=== PATIENT | male | born 2000 | race Caucasian/White ===

== ENCOUNTER 2021-01-28 12:59 | Inpatient (IN) ==
[2021-01-28 14:02] LABS: Basophils # (auto) 0.02 K/uL (0-0.2); Basophils % (auto) 0.2 %; Eosinophils # (auto) 0.11 K/uL (0-0.5); Hematocrit (blood only) 40.4 % (42-52); Hemoglobin 14.1 g/dL (14.0-18.0); Immature Granulocytes # (auto) 0.04 K/uL (0.00-0.02); Immature Granulocytes % (auto) 0.4 %; Lymphocytes % (auto) 11.8 %; Mean Corpuscular Hemoglobin 29.7 pg (25-34); Mean Corpuscular Hgb Conc 34.9 g/dL (32-36); Mean Corpuscular Volume 85.2 fL (80-100); Mean Platelet Volume 9.2 fL (7.4-10.4); Monocytes # (auto) 0.68 K/uL (0.11-0.59); Monocytes % (auto) 6.2 %; Neutrophils # (auto) 8.85 K/uL (1.4-6.5); Neutrophils % (auto) 80.4 %; Platelet Count 226 K/uL (130-400); RDW Coefficient of Variation 11.5 % (11.5-14.5); RDW Standard Deviation 36.1 fL (36.4-46.3); Red Blood Count 4.74 M/uL (4.7-6.1)
--- NOTE | 2021-01-28 14:04 | History & Physical Report ---
Date of Service January 28, 2021 Assessment & Plan (1) Branchial cleft cyst: Mr. Yang is a 20-year-old male with a history of Allergic Rhinitis and Chronic Left Maxillary Sinusitis who presents today as a referral from Dr. 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 Patient was seen by Dr. Peguero earlier today -- and Dr. Peguero aspirated 10 cc of purulent fluid. This fluid was sent off for both aerobic and anaerobic cultures and Gram stain. Over the past 4-5 days, the patient has had increased swelling in his neck, occasional fevers, and his neck mass is more tender. He was prescribed Augmentin -- however the swelling continued to worsen and that is why he re turned to see Dr. Peguero today. Dr Peguero referred him for admission and IV antibiotics. Patient first met with ENT in December 2020 for this swelling of his right neck over the preceding month. He was diagnosed with a branchial cleft cyst. CT Scan 12/15/20 demonstrated a 5.6 x 4.2 x 3.1 cm right neck lesion located inferior to the right angle of the mandible and anterior to the right sternocleidomastoid m uscle, compressing the right internal jugular vein. He was also diagnosed with a chronic left maxillary sinusitis at that time. Patient met with Dr. Peguero on 12/29/20 and was advised to undergo surgical excision -- this elective procedure was scheduled for mid February. Patient offers no other complaints. He denies any shortness of breath, stridor, adventitious breath sounds, difficulty swallowing, or any pain into his ear. He has not had any gagging, nausea, or vomiting. He denies any headache or stiff neck. No changes in his speech. 1. Admit to observation status on Med-Surg. 2. Consult Dr. Peguero, who plans on surgically excising this cyst. 3. Obtain baseline labs. 4. COVID screening. 5. Begin IV Unasyn 3 g q.6 hours. 6. Regular diet today, NPO at midnight. (2) Chronic left maxillary sinusitis: -- No maxillary tenderness. -- IV Unasyn 3 grams q 6 hours. -- Continue Claritin 10 mg daily as needed. -- Continue steroid nasal spray. (3) Allergic rhinitis: -- Continue Claritin 10 mg daily as needed. -- Continue steroid nasal spray. History of Present Illness Chief Complaint: -- Infected Right Branchial Cleft Cyst. Primary Care Provider: NO PCP Mr. Yang is a 20-year-old male with a history of Allergic Rhinitis and Chronic Left Maxillary Sinusitis who presents today as a referral from Dr. 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 Patient was seen by Dr. Peguero earlier today -- and Dr. Peguero aspirated 10 cc of purulent fluid. This fluid was sent off for both aerobic and anaerobic cultures and Gram stain. Over the past 4-5 days, the patient has had increased swelling in his neck, occasional fevers, and his neck mass is more tender. He was prescribed Augmentin -- however the swelling continued to worsen and that is why he returned to see Dr. Peguero today. Dr Peguero referred him for admission and IV antibiotics. Patient first met with ENT in December 2020 for this swelling of his right neck over the preceding month. He was diagnosed with a branchial cleft cyst. CT Scan 12/15/20 demonstrated a 5.6 x 4.2 x 3.1 cm right neck lesion located inferior to the right angle of the mandible and anterior to the right sternocleidomastoid muscle, compressing the right internal jugular vein. He was also diagnosed with a chronic left maxillary sinusitis at that time. Patient met with Dr. Peguero on 12/29/20 and was advised to undergo surgical excision -- this elective procedure was scheduled for mid February. Patient offers no other complaints. He denies any shortness of breath, stridor, adventitious breath sounds, difficulty swallowing, or any pain into his ear. He has not had any gagging, nausea, or vomiting. He denies any headache or stiff neck. No changes in his speech. Allergies Allergy/AdvReac Type Severity Reaction Status Date / Time kiwi Allergy hard to Verified 01/28/21 14:42 breath trace Allergy hard to Uncoded 01/28/21 14:42 breath Home Medications Medication Instructions Recorded Confirmed Type acetaminophen [Tylenol Extra 1,000 mg PO Q6 PRN 12/15/20 01/28/21 History Strength] fluticasone propionate [Flonase 1 spray INTRANASAL DAILY 12/15/20 01/28/21 History Allergy Relief] guaifenesin [Mucinex] 600 mg PO Q12H PRN 12/15/20 01/28/21 History ibuprofen 400 - 600 mg PO Q6H PRN 12/15/20 01/28/21 History loratadine [Claritin] 10 mg PO DAILY 12/15/20 01/28/21 History amoxicillin 875 mg-potassium 1 tab PO BID #20 tab 01/22/21 01/28/21 Rx clavulanate 125 mg tablet Past Med/Surg History Medical History Allergic rhinitis Chronic left maxillary sinusitis No pertinent past medical history Seasonal allergies Surgical History History of surgery correction of torsion Family History Mother Allergies Denies family history of Hearing loss No family history of adverse response to anesthesia No family history of bleeding disorder Heart disease Cancer Hypertension Stroke Asthma Social History Smoking Status: Never smoker Second Hand Exposure: No; Do You Dip or Chew Tobacco: No; Tobacco Cessation Education Requested by Patient: No Hx Alcohol Use: Yes Alcohol type: beer and hard liquor Alcohol Intake Frequency Comment: maybe 1 and more in a social setting per new patient form. Hx Substance Use: No Preferred Language: Moldovan Communication Ability: Effective Connection Worker Required: No Beliefs That Will Affect Care: None marital status: Single Current Living Situation: Family current occupational status: student Other Information That Helps Us Care for You: No Feels Safe at Home: Yes Safety Concerns: Feels Safe At This Time Assistive Devices: None Review of Systems Review of Systems: All systems reviewed & are unremarkable except as noted in Subjective Physical Exam Physical Exam: GENERAL: Patient in no acute distress. HEENT: Head is atraumatic, normocephalic. EOM's intact. Facies symmetric. No perioral cyanosis. Pharynx is clear. NECK: No JVD. Large right neck mass, fluctuant and doughy feeling with mild tenderness to palpation. Dressing from earlier aspiration is present. No obvious cervical or submandibular adenopathy. Carotid upstrokes are + 2 bilaterally. No bruits are noted. CHEST/LUNGS: Clear to auscultation throughout all lung delgadillo. No wheezes, rales, or crackles. No stridor. CVS: S1 and S2 are regular without obvious murmurs, gallops, or rubs. PMI is nondisplaced. No lifts, heaves, or thrills. No abdominal aortic or renal bruits. ABDOMINAL EXAM: Bowel sounds are present. No masses, organomegaly, or tenderness. EXTREMITIES: No clubbing or cyanosis. No edema. Intact posterior tibial and radial pulses bilaterally. NEUROLOGIC EXAM: Patient is awake, alert, and oriented. Pleasant and cooperative. Answers questions appropriately. Speech is clear. Normal movement in all 4 extremities. Gait pattern is unremarkable. Results & Data Results & Data ([facility]) Vital Signs (Past 12 Hours) Vital Signs Temp Pulse Resp BP Pulse Ox 01/28/21 13:02 37.2 C 77 20 142/82 H 97 Diagnostic Findings ULTRASOUND-GUIDED FINE-NEEDLE ASPIRATION CYSTIC LESION RIGHT NECK 01/28/21: CLINICAL HISTORY: Cystic lesion of the right neck. COMPARISON STUDY: Ultrasound and CT of the soft tissues of the neck dated 12/15/2020. PROCEDURE: The risks, benefits, and alternatives to the procedure were discussed with the patient. Written informed consent was obtained. The patient was placed supine in ultrasound, and the 5.5 x 2.8 x 4.7 cm minimally complex cystic lesion in the anterior right upper neck was localized by ultrasound and selected for fine needle aspiration. The right neck was prepped and draped in the usual sterile fashion. The lesion was aspirated under ultrasound guidance with 2 passes utilizing 25-gauge needles. Specimens were reviewed by the pathologist in real-time and deemed adequate for diagnosis. The patient tolerated the procedure well and left the department in satisfactory condition. IMPRESSION: Completed fine-needle aspiration of a cystic lesion of the right upper neck as above. CT SCAN OF NECK with IV Contrast 12/15/20: Visualized portions of the intracranial contents are unremarkable. The left maxillary sinus is opacified. There is mild ethmoid sinus mucosal thickening. Mastoid air cells are clear. Epiglottis is normal. No mucosal lesion is identified although these may be occult by CT. Note is made of a 5.6 x 4.2 x 3.1 cm hypodense cystic lesion within the right neck which corresponds to the finding on ultrasound. This measures above water attenuation. Note is made of a mildly thickened wall. This lesion is located inferior to the right angle of the mandible and anterior to the right sternocleidomastoid muscle. This compresses the right internal jugular vein. Note is made of an adjacent right level 5 lymph node measuring 8 mm in short axis diameter. Lung apices are clear. IMPRESSION: 1. 5.6 x 4.2 x 3.1 cm right neck lesion which corresponds to the finding on ultrasound. The lesion is located inferior to the right angle of the mandible and anterior to the right sternocleidomastoid mastoid muscle and compresses the right internal jugular vein. Mildly thickened wall. Given location, this favors a right second branchial cleft cyst with possible recent infection given wall thickening. However, a necrotic lymph node cannot be completely excluded. Therefore, nonemergent ENT consultation is recommended. 2. Prominent adjacent right level 5 lymph node 3. Opacified left maxillary sinus. Mild ethmoid sinus mucosal thickening. Code Status & VTE Plan Code Status Full Code VTE Prophylaxis Plan VTE Prophylaxis will be ordered: Yes Supervising Physician Co-Signing Physician Notes I personally saw and examined the patient. I verified all gutierrez points and agree with Bulmaro Haji PA-C with the following exceptions and/or additions: 20 yo male with infected right brachial cyst. Improved since aspiration in office. O/E non-toxic appearing, HS1+2, no murmurs, Chest CTAB A/P IV Unasyn and dexamethasone per EENT, consult Dr Peguero for further management. NPO with IV fluids after midnight PG Care Time/CCT Total # of Minutes Spent Total Time Spent with Patient: Total time spent is greater than 50% in coordination of care (as documented) at patient's floor/unit and/or counseling patient:30 Coding Level of Care Code 88310 OBS Care - Level 2 Diagnoses Branchial cleft cyst Q18.0 Chronic left maxillary sinusitis J32.0 Allergic rhinitis J30.9 Time Spent (min) 40
[2021-01-28 14:32] LABS: Albumin Globulin Ratio 0.9 (0.9-2); Albumin Level 3.5 gm/dl (3.4-5.0); BUN Creatinine Ratio 12.3 (10-20); Bilirubin,Total 0.5 mg/dl (0.2-1); Calcium 8.7 mg/dl (8.5-10.1); Est GFR (African American) 123.3 ml/min; Est GFR (Non-African American) 106.4 ml/min; Potassium 3.8 mmol/L (3.5-5.1); Total Protein 7.5 gm/dl (6.4-8.2)
[2021-01-28 16:26] LABS: Appearance Urine Clear (Clear); Bacteria Urine Automated Negative (Negative); Bilirubin Urine Negative (Negative); Blood Urine Negative (Negative); Color Urine Dark Yellow; Glucose Urine UA Negative (Negative); Ketones Urine Trace (Negative); Leukocyte Esterase Urine Negative (Negative); Nitrite Urine Negative (Negative); Protein Urine Trace (Negative); RBC Urine Automated 0-4 /hpf (0-4); Specific Gravity Urine 1.038 (1.000-1.030); Urobilinogen Urine Negative (Negative); pH Urine 5.5 (4.5-7.5)
[2021-01-28] MEDS ORDERED: AMPICILLIN/SULBACTAM SOD 3,000 MG in 0.9 % SODIUM CHLORIDE 100 ML IV STA (16:42)
[2021-01-28] MEDS ORDERED: DEXAMETHASONE SOD INJ 4 MG/ML VIAL IV ONE (17:00)
[2021-01-28] MEDS ORDERED: ZOLPIDEM TARTRATE 5 MG TAB PO PRN (18:34)
[2021-01-28] MEDS ORDERED: MAGNESIUM HYDROXIDE SUSP 30 ML UDC PO PRN (18:34)
[2021-01-28] MEDS ORDERED: POLYETHYLENE (MIRALAX) 17 GM PACK PO PRN (18:34)
[2021-01-28] MEDS ORDERED: ONDANSETRON INJ 2 MG/ML 2 ML VIAL IV PRN (18:34)
[2021-01-28] MEDS ORDERED: ALUMINUM/MAGNESIUM SUSP 30 ML UDC PO PRN (18:34)
--- NOTE | 2021-01-28 20:06 | ENT Consultation ---
Date of Consultation January 28, 2021 Assessment & Plan (1) Branchial cleft cyst: The cyst has become infected. I have aspirated 10 cc of purulent material reducing the size of the cyst. Will admit for IV Unasyn and Decadron. If he worsens he will need continued IV antibiotics. If he does improve with less tenderness and less swelling he can undergo excision of branchial cleft cyst. Risks and implications were explained to the patient and his father who was present. They both appear to understand and desire to proceed with admission and possible excision. History of Present Illness Reason for Consultation: This 20-year-old presented to the emergency room in December with acute onset of right neck swelling. He was found to have a rather large right neck cystic lesion. CT scan documented cyst. Needle biopsy showed squamous cells consistent with branchial cleft cyst. The patient went home after graduation. However the right neck swelling increased and became tender and painful. He was at home therefore I prescribed Augmentin. He finally returned to see me today when he was found to have evidence of abscess. 10 cc of pus was aspirated. He will be admitted for IV Unasyn and Decadron. He may need excision of branchial cleft cyst acutely tomorrow. Attending Physician: Tommy Rea MD Allergies Allergy/AdvReac Type Severity Reaction Status Date / Time kiwi Allergy hard to Verified 01/28/21 14:42 breath trace Allergy hard to Uncoded 01/28/21 14:42 breath Home Medications Medication Instructions Recorded Confirmed Type acetaminophen [Tylenol Extra 1,000 mg PO Q6 PRN 12/15/20 01/28/21 History Strength] fluticasone propionate [Flonase 1 spray INTRANASAL DAILY 12/15/20 01/28/21 History Allergy Relief] guaifenesin [Mucinex] 600 mg PO Q12H PRN 12/15/20 01/28/21 History ibuprofen 400 - 600 mg PO Q6H PRN 12/15/20 01/28/21 History loratadine [Claritin] 10 mg PO DAILY 12/15/20 01/28/21 History amoxicillin 875 mg-potassium 1 tab PO BID #20 tab 01/22/21 01/28/21 Rx clavulanate 125 mg tablet Patient History Medical History Allergic rhinitis Chronic left maxillary sinusitis No pertinent past medical history Seasonal allergies Surgical History History of surgery correction of torsion Family History Mother Allergies Denies family history of Hearing loss No family history of adverse response to anesthesia No family history of bleeding disorder Heart disease Cancer Hypertension Stroke Asthma Social History Smoking Status: Never smoker Second Hand Exposure: No; Do You Dip or Chew Tobacco: No; Tobacco Cessation Education Requested by Patient: No Hx Alcohol Use: Yes Alcohol type: beer and hard liquor Alcohol Intake Frequency Comment: maybe 1 and more in a social setting per new patient form. Hx Substance Use: No Preferred Language: Bermudian Communication Ability: Effective Macadam Raker Required: No Beliefs That Will Affect Care: None marital status: Single Current Living Situation: Family current occupational status: student Other Information That Helps Us Care for You: No Feels Safe at Home: Yes Safety Concerns: Feels Safe At This Time Assistive Devices: None Physical Exam Constitutional: WD/WN, vitals as above Eyes: PERRL, conjunctivae normal, anicteric sclerae ENMT: external ear and nose normal, oropharynx normal Neck: Large fluctuant tender 8 cm right neck mass. 10 cc of purulent material was aspirated and sent for culture. This did provide some relief. Respiratory: normal respiratory effort, lungs clear to auscultation Cardiovascular: RRR, no murmur, no edema Results & Data ([facility]) Vital Signs (Past 12 Hours) Vital Signs Temp Pulse Pulse Resp BP BP Pulse Ox 01/28/21 18:34 37.5 C 96 H 20 155/81 H 96 01/28/21 18:11 36.7 C 88 16 146/81 H 98 01/28/21 18:01 88 23 97 01/28/21 18:00 83 21 146/81 H 97 01/28/21 17:50 91 H 26 H 97 01/28/21 17:46 97 H 16 145/80 H 98 01/28/21 17:40 87 23 97 01/28/21 17:31 89 19 97 01/28/21 17:30 89 23 145/80 H 98 01/28/21 17:00 83 20 156/83 H 97 01/28/21 16:40 95 H 15 97 01/28/21 16:31 103 H 23 98 01/28/21 16:30 103 H 21 156/89 H 98 01/28/21 16:20 94 H 22 97 01/28/21 16:10 83 22 97 01/28/21 16:01 89 18 97 01/28/21 16:00 87 12 149/74 H 97 01/28/21 15:50 94 H 21 98 01/28/21 15:40 96 H 96 H 21 141/79 H 97 01/28/21 15:31 79 17 97 01/28/21 15:30 84 19 141/79 H 97 01/28/21 15:20 91 H 19 97 01/28/21 15:00 90 17 143/80 H 97 01/28/21 14:30 93 H 22 148/80 H 98 01/28/21 14:00 88 18 145/82 H 97 01/28/21 13:02 37.2 C 77 20 142/82 H 97
[2021-01-28] MEDS: LACTATED RINGER'S 1,000 ML IV SCH (22:47)
[2021-01-28] MEDS: AMPICILLIN/SULBACTAM SOD 3,000 MG in 0.9 % SODIUM CHLORIDE 100 ML IV SCH (23:32)
[2021-01-29] MEDS: AMPICILLIN/SULBACTAM SOD 3,000 MG in 0.9 % SODIUM CHLORIDE 100 ML IV SCH ×4 (05:04→23:35)
[2021-01-29 07:36] LABS: BUN Creatinine Ratio 12.1 (10-20); Calcium 8.9 mg/dl (8.5-10.1); Creatinine Clr Calc Pharmacy 156.3 ml/min; Est GFR (African American) 144.8 ml/min; Est GFR (Non-African American) 124.9 ml/min; Potassium 4.6 mmol/L (3.5-5.1)
[2021-01-29] MEDS: LACTATED RINGER'S 1,000 ML IV SCH ×2 (08:07→14:56)
[2021-01-29] MEDS: LORATADINE 10 MG TAB PO SCH (08:08)
[2021-01-29] MEDS: FLUTICASONE PROPIONATE NA SPR 16 GM BTL SCH (08:08)
[2021-01-29 09:25] LABS: Basophils # (auto) 0.01 K/uL (0-0.2); Basophils % (auto) 0.1 %; Eosinophils # (auto) 0.02 K/uL (0-0.5); Eosinophils % (auto) 0.2 %; Hematocrit (blood only) 43.3 % (42-52); Hemoglobin 15.3 g/dL (14.0-18.0); Immature Granulocytes # (auto) 0.05 K/uL (0.00-0.02); Immature Granulocytes % (auto) 0.5 %; Lymphocytes # (auto) 1.34 K/uL (1.2-3.4); Lymphocytes % (auto) 12.3 %; Mean Corpuscular Hemoglobin 29.8 pg (25-34); Mean Corpuscular Hgb Conc 35.3 g/dL (32-36); Mean Corpuscular Volume 84.4 fL (80-100); Mean Platelet Volume 9.1 fL (7.4-10.4); Monocytes # (auto) 0.84 K/uL (0.11-0.59); Monocytes % (auto) 7.7 %; Neutrophils # (auto) 8.64 K/uL (1.4-6.5); Neutrophils % (auto) 79.2 %; Platelet Count 246 K/uL (130-400); RDW Coefficient of Variation 11.4 % (11.5-14.5); RDW Standard Deviation 35.5 fL (36.4-46.3); Red Blood Count 5.13 M/uL (4.7-6.1)
--- NOTE | 2021-01-29 14:49 | Hospitalist Progress Note ---
Date of Service January 29, 2021 Assessment & Plan (1) Branchial cleft cyst: With infection. - Continue Unasyn and dexamethasone - ENT consulted -> Plan for removal today vs. tomorrow pending OR time. (2) Chronic left maxillary sinusitis: - Abx as above (3) Allergic rhinitis: - Continue loratadine and Flonase (4) DVT prophylaxis: SCDs - Low DVT risk per admission calculator Admission and Anticipated Discharge Date Admission Date: January 28, 2021 Subjective Feels better today. Neck is less stiff/sore. Reports no fevers/chills, chest pain, shortness of breath, abdominal pain, nausea, or vomiting. Physical Exam Constitutional: WD/WN, vitals as above Eyes: EOM intact bilaterally; no conjunctival abnormality ENMT: external ear and nose normal, oropharynx normal Neck: trachea midline, no thyromegaly + anterior neck swelling (Right side); + abnormal visual inspection Respiratory: normal respiratory effort, lungs clear to auscultation no respiratory distress Cardiovascular: RRR, no murmur, no edema Gastrointestinal (Abdomen): Inspection/Auscultation: abdomen normal to inspection; abdomen not distended Musculoskeletal: no cyanosis or clubbing, extremities motor strength 5/5 Skin: no rashes, warm and dry Neurologic: moves all extremities and awake Psychiatric: Orientation: alert, oriented to person and cooperative Results & Data Results & Data ([facility]) Vital Signs (Past 12 Hours) Vital Signs Temp Pulse Resp BP Pulse Ox 01/29/21 06:58 36.5 C 62 16 137/76 97 PG Care Time/CCT Total # of Minutes Spent Total Time Spent with Patient: Total time spent is greater than 50% in coord ination of care (as documented) at patient's floor/unit and/or counseling patient: Coding Level of Care Code 73834 Subseq Hosp Care Lvl 2 Diagnoses Branchial cleft cyst Q18.0 Chronic left maxillary sinusitis J32.0 Allergic rhinitis J30.9 DVT prophylaxis Z29.9
[2021-01-29] MEDS ORDERED: dexAMETHasone 8 MG in SYRINGE 0 ML IV SCH (16:00)
--- NOTE | 2021-01-29 16:02 | Ears,Nose,Throat Progress Note ---
Date of Service January 29, 2021 Assessment & Plan (1) Branchial cleft cyst: improving, surgery postponed until tomorrow, Admission and Anticipated Discharge Date Admission Date: January 29, 2021 Subjective Feeling better.Pain level 1 Physical Exam Constitutional: WD/WN, vitals as above Eyes: PERRL, conjunctivae normal, anicteric sclerae ENMT: external ear and nose normal, oropharynx normal Neck: still has fluctuant mass, large, minimaltenderness Results & Data ([facility]) Vital Signs (Past 12 Hours) Vital Signs Temp Pulse Resp BP Pulse Ox 01/29/21 14:46 36.9 C 85 20 144/73 H 98 01/29/21 06:58 36.5 C 62 16 137/76 97
[2021-01-30] MEDS: AMPICILLIN/SULBACTAM SOD 3,000 MG in 0.9 % SODIUM CHLORIDE 100 ML IV SCH ×4 (05:27→22:51)
[2021-01-30] MEDS ORDERED: fentaNYL citrate 100 MCG/2 ML VIAL ONE (07:57)
[2021-01-30] MEDS ORDERED: MIDAZOLAM HCL 1 MG/ML 2ML VIAL ONE (07:57)
--- NOTE | 2021-01-30 08:03 | Anesthesiology Consultation ---
Date of Service January 30, 2021 Assessment & Plan (1) Encounter for pre-operative examination: History Surgery Operation Date: 01/30/21 08:20 Proposed Procedures p Right Excision Infected Branchial Cleft Cyst - Kaitlin Peguero MD Height/Weight Height: 5 ft 9 in Weight: 91.9 kg Allergies Allergy/AdvReac Type Severity Reaction Status Date / Time kiwi Allergy hard to Verified 01/28/21 14:42 breath trace Allergy hard to Uncoded 01/28/21 14:42 breath Medications Home Medications Medication Instructions Recorded Confirmed Last Taken acetaminophen [Tylenol Extra 1,000 mg PO Q6 PRN 12/15/20 01/28/21 01/27/21 Strength] fluticasone propionate [Flonase 1 spray INTRANASAL DAILY 12/15/20 01/28/21 01/27/21 Allergy Relief] guaifenesin [Mucinex] 600 mg PO Q12H PRN 12/15/20 01/28/21 01/27/21 ibuprofen 400 - 600 mg PO Q6H PRN 12/15/20 01/28/21 01/27/21 loratadine [Claritin] 10 mg PO DAILY 12/15/20 01/28/21 01/27/21 amoxicillin 875 mg-potassium 1 tab PO BID #20 tab 01/22/21 01/28/21 01/28/21 clavulanate 125 mg tablet Active Medications Generic Name Dose Route Start Last Admin Trade Name Freq PRN Reason Stop Dose Admin Fluticasone Propionate 1 sprays 01/29/21 09:00 01/29/21 08:08 Fluticasone Propionate Na Spr 16 Gm Btl NA 02/28/21 08:59 Not Given DAILY JESÚS Dexamethasone 8 mg/ Syringe 2 mls @ 1 mls/min 01/29/21 16:00 01/29/21 16:58 IV 02/28/21 15:59 1 mls/min Q24H JESÚS Administration Ampicillin Sodium/Sulbactam 108 mls @ 200 mls/hr 01/28/21 23:00 01/30/21 06:15 Sodium 3,000 mg/ Sodium IV 02/07/21 22:59 Infused Chloride Q6H JESÚS Infusion Protocol Loratadine 10 mg 01/29/21 09:00 01/29/21 08:08 Loratadine 10 Mg Tab PO 02/28/21 08:59 Not Given DAILY JESÚS Past Medical History Medical History Allergic rhinitis Chronic left maxillary sinusitis No pertinent past medical history Seasonal allergies Past Family History Family History Mother Allergies Denies family history of Hearing loss No family history of adverse response to anesthesia No family history of bleeding disorder Heart disease Cancer Hypertension Stroke Asthma Past Surgical History Surgical History History of surgery correction of torsion Social History Smoking Status: Never smoker Do You Dip or Chew Tobacco: No Hx Alcohol Use: Yes Alcohol type: beer and hard liquor alcohol intake frequency: a few times a week Hx Substance Use: No Physical Exam Vital Signs Last Vital Signs Temp 36.5 C 01/30/21 07:58 Pulse 81 01/30/21 07:58 Resp 16 01/30/21 07:58 BP 127/65 01/30/21 07:58 Pulse Ox 98 01/30/21 07:58 Testing Laboratory Results 01/29/21 09:12 01/29/21 06:24 Urine Color Dark Yellow 01/28/21 15:45 Urine Appearance Clear (Clear) 01/28/21 15:45 Urine pH 5.5 (4.5-7.5) 01/28/21 15:45 Ur Specific [place] 1.038 (1.000-1.030) H 01/28/21 15:45 Urine Protein Trace (Negative) H 01/28/21 15:45 Urine Glucose (UA) Negative (Negative) 01/28/21 15:45 Urine Ketones Trace (Negative) H 01/28/21 15:45 Urine Nitrite Negative (Negative) 01/28/21 15:45 Ur Leukocyte Esterase Negative (Negative) 01/28/21 15:45 Urine WBC (Auto) 1-5 /hpf (0-5) 01/28/21 15:45 Urine RBC (Auto) 0-4 /hpf (0-4) 01/28/21 15:45 U Hyaline Cast (Auto) 1-5 /lpf (0-5) 01/28/21 15:45 U Epithel Cells (Auto) 10-20 /lpf (0-5) H 01/28/21 15:45 Urine Bacteria (Auto) Negative (Negative) 01/28/21 15:45
--- NOTE | 2021-01-30 08:20 | History & Physical Bridge Note ---
Date of Service January 30, 2021 History & Physical Bridge Note I have examined the patient, reviewed the History & Physical and in the interval since the performance of the History & Physical I have noted the following changes of clinical significance: no changes noted
[2021-01-30] MEDS ORDERED: LIDOCAINE 2%/EPINEPHRINE 1:100,000 20ML ONE (08:46)
[2021-01-30] MEDS ORDERED: PROPOFOL IV EMULSION 10 MG/ML 20 ML VIAL IV ONE (09:18)
[2021-01-30] MEDS ORDERED: ONDANSETRON INJ 2 MG/ML 2 ML VIAL ONE (09:18)
[2021-01-30] MEDS ORDERED: ROCURONIUM BROMIDE 10 MG/ML 5 ML VIAL IV ONE (09:18)
[2021-01-30] MEDS ORDERED: DEXAMETHASONE SOD INJ 4 MG/ML VIAL ONE (09:18)
[2021-01-30] MEDS ORDERED: LIDOCAINE 2% 2 ML VIAL/AMP(20MG/ML) INFIL ONE (09:18)
[2021-01-30] MEDS ORDERED: SUCCINYLCHOLINE CHLORIDE 20 MG/ML 10 ML VIAL IV ONE (09:18)
[2021-01-30] MEDS ORDERED: ONDANSETRON INJ 2 MG/ML 2 ML VIAL IV PRN (09:19)
[2021-01-30] MEDS ORDERED: fentaNYL citrate 100 MCG/2 ML VIAL IV PRN (09:19)
[2021-01-30] MEDS ORDERED: HYDROmorphone INJ 1 MG/ML SYRINGE IV PRN (09:19)
[2021-01-30] MEDS ORDERED: ATROPINE SULFATE 0.1 MG/ML 10ML SYR IV PRN (09:19)
[2021-01-30] MEDS ORDERED: ePHEDrine sulfate 50 MG/ML AMP IV PRN (09:19)
[2021-01-30] MEDS: FLUTICASONE PROPIONATE NA SPR 16 GM BTL SCH ×2 (10:13→11:59)
[2021-01-30] MEDS: LORATADINE 10 MG TAB PO SCH ×2 (10:13→11:59)
[2021-01-30] MEDS: BACITRACIN OINT 15 GM TUBE ONE ×2 (10:13→10:21)
--- NOTE | 2021-01-30 10:41 | Operative Report ---
PG Post Operative Report Pre & Post Diagnosis Operation Date: 01/30/21 08:20 Pre-Op Diagnosis: INFECTED RIGHT BRANCHIAL CLEFT CYST Post-Op Diagnosis: INFECTED RIGHT BRANCHIAL CLEFT CYST I identified the patient and participated in the time-out.: Yes Procedure Operation Date: 01/30/21 08:20 Actual Procedures p Right Excision Infected Branchial Cleft Cyst(Right) - Kaitlin Peguero MD Surgeon Kaitlin Peguero MD Body Former None Estimated Blood Loss 30 Findings Consistent with Post-Op Diagnosis Specimens Right branchial cleft cyst, Anesthesia Type General Complications none Disposition Accompanied Patient To Recovery: Yes Disposition: Recovery Room Indications This 20-year-old had right-sided branchial cleft cyst enlarging for the past 2 months and became infected last week and was admitted for IV antibiotics with improvement now for excision Description of Procedure He was brought to the operating room, properly identified, prepped and draped in usual sterile manner with ChloraPrep after general endotracheal anesthesia. The neck was hyperextended with a shoulder roll and the incision was marked 4 cm below the angle of the mandible in a curvilinear fashion following the skin creases of the right neck. The incision was made using the 15 blade through the skin and subcutaneous layer and then through the platysma layer. Bleeders were controlled using the Bovie. Blunt and sharp dissection was performed using the Metzenbaum scissors through the superficial layer of the cervical fascia exposing the cyst posteriorly the cyst was freed from the sternocleidomastoid muscle which was not divided and was retracted posteriorly peeling it away from the cyst. Dissection was performed above and below the cyst using the Metzenbaum scissors and the bipolar cautery to control bleeding opening up the fascial capsule of the cyst as dissection was performed toward the bottom of the cyst the cyst ruptured. Cultures were taken. The wound was irrigated with saline. The remaining dissection was then performed bluntly and sharply with the Metzenbaum scissors behind the cyst overlying the jugular in the carotid sheath. Bleeders were controlled using the bipolar cautery preserving all the major vessels. In this manner the entire cyst was trace to the carotid finding no sign of fistula. The entire cyst was then removed. Hemostasis was further controlled using 3-0 silk ties and using the bipolar cautery. The wound was again irrigated with saline and then closed with interrupted Vicryl sutures on the platysma layer. Alan drain was placed in the depths of the wound and was sewn in place inferiorly in the incision. The incision was closed with interrupted 5-0 nylon sutures. A light pressure dressing was placed. He tolerated the procedure well was taken recovery area in satisfactory condition. I attest to the content of the Intraoperative Record and any orders documented therein. Any exceptions are noted below.
--- NOTE | 2021-01-30 11:13 | Anesthesiology Progress Note ---
Date of Service January 30, 2021 Anesthesia Post Procedure Vital Signs Vital Signs: Temp Pulse Pulse Resp BP Pulse Ox 01/30/21 11:05 71 14 161/84 H 96 01/30/21 10:55 75 17 155/83 H 96 01/30/21 10:45 70 20 162/81 H 98 01/30/21 10:35 36.5 C 85 16 170/86 H 98 01/30/21 08:31 36.8 C 95 H 18 166/99 H 98 01/30/21 07:58 36.5 C 81 16 127/65 98 01/29/21 23:41 36.7 C 68 17 135/75 96 01/29/21 14:46 36.9 C 85 20 144/73 H 98 Pain Intensity Right Lateral Neck: Pain Intensity: 2 Transfer of Care Handoff Completed per policy Notes Mental Status: alert / awake / arousable and participated in evaluation Patient Amnestic to Procedure: Yes Nausea / Vomiting: adequately controlled Pain: adequately controlled Airway Patency, RR, SpO2: stable & adequate BP & HR: stable & adequate Hydration State: stable & adequate Anesthetic Complications: no major complications apparent and Pt Satisfied with anesthetic care
[2021-01-30] MEDS: ACETAMINOPHEN 500 MG TAB PO PRN (11:59)
[2021-01-30] MEDS ORDERED: guaiFENesin 600 MG TABCR PO PRN (12:14)
[2021-01-30] MEDS: HYDROCODONE/ACETAMOPHEN 5/325MG TAB PO PRN ×3 (14:19→23:25)
--- NOTE | 2021-01-30 17:08 | Hospitalist Progress Note ---
Date of Service January 30, 2021 Assessment & Plan (1) Branchial cleft cyst: With infection. - Continue Unasyn and dexamethasone - ENT consulted -> Surgery today to remove cyst went well. No complications. Will keep tonight and likely discharge tomorrow on PO abx. (2) Chronic left maxillary sinusitis: - Abx as above (3) Allergic rhinitis: - Continue loratadine and Flonase (4) DVT prophylaxis: SCDs - Low DVT risk per admission calculator Admission and Anticipated Discharge Date Admission Date: January 29, 2021 Subjective Doing well after surgery. Pain is quite low overall. Reports no fevers/chills, chest pain, shortness of breath, abdominal pain, nausea, or vomiting. Physical Exam Constitutional: WD/WN, vitals as above Eyes: EOM intact bilaterally; no conjunctival abnormality ENMT: external ear and nose normal, oropharynx normal Neck: trachea midline, no thyromegaly + abnormal visual inspection Bandages on neck Respiratory: normal respiratory effort, lungs clear to auscultation no respiratory distress Cardiovascular: RRR, no murmur, no edema Gastrointestinal (Abdomen): Inspection/Auscultation: abdomen normal to inspection; abdomen not distended Musculoskeletal: no cyanosis or clubbing, extremities motor strength 5/5 Skin: no rashes, warm and dry Neurologic: moves all extremities and awake Psychiatric: Orientation: alert, oriented to person and cooperative Results & Data Results & Data ([facility]) Vital Signs (Past 12 Hours) Vital Signs Temp Pulse Pulse Resp BP Pulse Ox 01/30/21 14:39 36.6 C 71 16 137/74 95 01/30/21 13:17 70 16 128/68 96 01/30/21 12:18 76 16 155/87 H 94 01/30/21 11:50 37.1 C 80 16 130/75 95 01/30/21 11:15 36.8 C 81 19 153/81 H 94 01/30/21 11:05 71 14 161/84 H 96 01/30/21 10:55 75 17 155/83 H 96 01/30/21 10:45 70 20 162/81 H 98 01/30/21 10:35 36.5 C 85 16 170/86 H 98 01/30/21 08:31 36.8 C 95 H 18 166/99 H 98 01/30/21 07:58 36.5 C 81 16 127/65 98 PG Care Time/CCT Total # of Minutes Spent Total Time Spent with Patient: Total time spent is greater than 50% in coordination of care (as documented) at patient's floor/unit and/or counseling patient: Coding Level of Care Code 54295 Subseq Hosp Care Lvl 2 Diagnoses Branchial cleft cyst Q18.0 Chronic left maxillary sinusitis J32.0 Allergic rhinitis J30.9 DVT prophylaxis Z29.9
[2021-01-30] MEDS ORDERED: AMOXICILLIN/CLAVULANATE 875MG HOME PACK PO SCH (21:00)
[2021-01-31] MEDS: AMPICILLIN/SULBACTAM SOD 3,000 MG in 0.9 % SODIUM CHLORIDE 100 ML IV SCH ×4 (05:14→22:40)
[2021-01-31] MEDS: FLUTICASONE PROPIONATE NA SPR 16 GM BTL SCH (09:06)
[2021-01-31] MEDS: HYDROCODONE/ACETAMOPHEN 5/325MG TAB PO PRN ×4 (09:08→21:05)
[2021-01-31] MEDS: LORATADINE 10 MG TAB PO SCH (09:09)
--- NOTE | 2021-01-31 09:17 | Ears,Nose,Throat Progress Note ---
Date of Service January 31, 2021 Assessment & Plan (1) Branchial cleft cyst: mod. blood last night, none this AM, observe 1 more day, remove drain in AM if no bleeding Admission and Anticipated Discharge Date Admission Date: January 29, 2021 Subjective 1 day post op, improving, saturated bandage/changed last night Physical Exam Constitutional: WD/WN, vitals as above Eyes: PERRL, conjunctivae normal, anicteric sclerae ENMT: external ear and nose normal, oropharynx normal Neck: trachea midline, no thyromegaly dressings dry today, drain in place, no further bleeding Results & Data ([facility]) Vital Signs (Past 12 Hours) Vital Signs Temp Pulse Resp BP Pulse Ox 01/31/21 07:11 37.1 C 53 L 18 117/69 97 01/31/21 03:42 36.7 C 57 L 18 113/63 97 01/30/21 23:16 36.8 C 55 L 18 121/70 97
--- NOTE | 2021-01-31 11:52 | Hospitalist Progress Note ---
Date of Service January 31, 2021 Assessment & Plan (1) Branchial cleft cyst: With infection. - Continue Unasyn - ENT consulted -> Surgery on 01/30 to remove cyst went well. No complications. Did have significant drainage last night, so drain will remain in place x 1 more day. (2) Chronic left maxillary sinusitis: - Abx as above (3) Allergic rhinitis: - Continue loratadine and Flonase (4) DVT prophylaxis: SCDs - Low DVT risk per admission calculator Admission and Anticipated Discharge Date Admission Date: January 29, 2021 Subjective Doing well today. Did have significant drainage yesterday. Left drain in x 1 more day. Reports no fevers/chills, chest pain, shortness of breath, abdominal pain, nausea, or vomiting. Physical Exam Constitutional: WD/WN, vitals as above Eyes: EOM intact bilaterally; no conjunctival abnormality ENMT: external ear and nose normal, oropharynx normal Neck: trachea midline, no thyromegaly + abnormal visual inspection Respiratory: normal respiratory effort, lungs clear to auscultation no respiratory distress Cardiovascular: RRR, no murmur, no edema Gastrointestinal (Abdomen): Inspection/Auscultation: abdomen normal to inspection; abdomen not distended Musculoskeletal: no cyanosis or clubbing, extremities motor strength 5/5 Skin: no rashes, warm and dry Neurologic: moves all extremities and awake Psychiatric: Orientation: alert, oriented to person and cooperative Results & Data Results & Data ([facility]) Vital Signs (Past 12 Hours) Vital Signs Temp Pulse Resp BP Pulse Ox 01/31/21 11:27 37.0 C 64 18 119/67 95 01/31/21 07:11 37.1 C 53 L 18 117/69 97 01/31/21 03:42 36.7 C 57 L 18 113/63 97 PG Care Time/CCT Total # of Minutes Spent Total Time Spent with Patient: Total time spent is greater than 50% in coordination of care (as documented) at patient's floor/unit and/or counseling patient: Coding Level of Care Code 27122 Subseq Hosp Care Lvl 2 Diagnoses Branchial cleft cyst Q18.0 Chronic left maxillary sinusitis J32.0 Allergic rhinitis J30.9 DVT prophylaxis Z29.9
[2021-01-31] MEDS: ACETAMINOPHEN 500 MG TAB PO PRN (12:59)
[2021-02-01] MEDS: AMPICILLIN/SULBACTAM SOD 3,000 MG in 0.9 % SODIUM CHLORIDE 100 ML IV SCH (05:27)
[2021-02-01] MEDS: HYDROCODONE/ACETAMOPHEN 5/325MG TAB PO PRN (06:03)
[2021-02-01] MEDS: LORATADINE 10 MG TAB PO SCH (08:24)
[2021-02-01] MEDS: FLUTICASONE PROPIONATE NA SPR 16 GM BTL SCH (08:24)
--- NOTE | 2021-02-01 09:44 | Ears,Nose,Throat Progress Note ---
Date of Service February 01, 2021 Assessment & Plan (1) Branchial cleft cyst: Status post excision. Drain removed today. No sign of infection or swelling. Culture only showed pinpoint growth, being reintubated. May be anaerobic. In any case there is no sign of infection now. Most likely st erilized with Augmentin followed by IV Unasyn. I do not see a need to continue antibiotics unless he has any sign of infection. Instructed to apply bacitracin to the suture line after showering daily. Return for follow-up for suture removal 1 week. (2) Chronic left maxillary sinusitis: CT did show opacification of the left maxillary sinus, apparently r esponded well to the antibiotics. He has no sinus symptoms. Continue Flonase. Follow-up if any sign of sinus infection. Admission and Anticipated Discharge Date Admission Date: January 29, 2021 Subjective Feels much better. Minimal drainage x24 hours. Minimal pain. Physical Exam Constitutional: WD/WN, vitals as above Eyes: PERRL, conjunctivae normal, anicteric sclerae ENMT: external ear and nose normal, oropharynx normal Neck: trachea midline, no thyromegaly Drain removed. Sutures in place. No sign of infection or swelling. Results & Data ([facility]) Vital Signs (Past 12 Hours) Vital Signs Temp Pulse Resp BP Pulse Ox 02/01/21 07:14 36.9 C 74 14 119/67 95 01/31/21 22:40 36.7 C 62 18 120/72 97
--- NOTE | 2021-02-01 11:28 | Discharge Summary ---
Date of Service February 01, 2021 Admission HPI Per Admitting Provider Mr. Yang is a 20-year-old male with a history of Allergic Rhinitis and Chronic Left Maxillary Sinusitis who presents today as a referral from Dr. 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 Patient was seen by Dr. Peguero earlier today -- and Dr. Peguero aspirated 10 cc of purulent fluid. This fluid was sent off for both aerobic and anaerobic cultures and Gram stain. Over the past 4-5 days, the patient has had increased swelling in his neck, occasional fevers, and his neck mass is more tender. He was prescribed Augmentin -- however the swelling continued to worsen and that is why he ret urned to see Dr. Peguero today. Dr Peguero referred him for admission and IV antibiotics. Patient first met with ENT in December 2020 for this swelling of his right neck over the preceding month. He was diagnosed with a branchial cleft cyst. CT Scan 12/15/20 demonstrated a 5.6 x 4.2 x 3.1 cm right neck lesion located inferior to the right angle of the mandible and anterior to the right sternocleidomastoid mu scle, compressing the right internal jugular vein. He was also diagnosed with a chronic left maxillary sinusitis at that time. Patient met with Dr. Peguero on 12/29/20 and was advised to undergo surgical excision -- this elective procedure was scheduled for mid February. Patient offers no other complaints. He denies any shortness of breath, stridor, adventitious breath sounds, difficulty swallowing, or any pain into his ear. He has not had any gagging, nausea, or vomiting. He denies any headache or stiff neck. No changes in his speech. Principal Diagnosis Infected branchial cyst Discharge Exam Constitutional WD/WN, vitals as above Eyes EOM intact bilaterally; no conjunctival abnormality ENMT external ear and nose normal, oropharynx normal Neck trachea midline, no thyromegaly + abnormal visual inspection Respiratory normal respiratory effort, lungs clear to auscultation no respiratory distress Cardiovascular RRR, no murmur, no edema Gastrointestinal (Abdomen) Inspection/Auscultation: abdomen normal to inspection; abdomen not distended Musculoskeletal no cyanosis or clubbing, extremities motor strength 5/5 Skin no rashes, warm and dry Neurologic moves all extremities and awake Psychiatric Orientation: alert, oriented to person and cooperative Discharge Data Allergies Allergy/AdvReac Type Severity Reaction Status Date / Time valerai Allergy hard to Verified 01/28/21 14:42 breath Consultations 01/28/21 18:34 Consult Otolaryngology (Head and Neck) Routine Procedures Performed Operation Date: 01/30/21 08:20 Actual Procedures p Right Excision Infected Branchial Cleft Cyst(Right) - Kaitlin Peguero MD Hospital Course (1) Branchial cleft cyst: With infection. - Continue Unasyn - ENT consulted -> Surgery on 01/30 to remove cyst went well. No complications. - Drain removed on 02/01. Cleared by ENT for discharge. No further abx needed per ENT. Follow-up in 1 week for site check and suture removal. (2) Chronic left maxillary sinusitis: - Abx as above (3) Allergic rhinitis: - Continue loratadine and Flonase (4) DVT prophylaxis: SCDs - Low DVT risk per admission calculator Total Time Total Time Spent Total Time Spent (In Minutes): 35 Discharge Plan Discharge Items Patient Disposition: Home - Self-Care Reason For Visit: INFECTED RIGHT BRANCHIAL CLEFT CYST Discharge Diagnosis: Infected right branchial cyst Activity: Resume your previous activity Non-emergency contact: Primary Care Provider and Surgeon Call non-emergency contact if: your symptoms worsen and your temperature is above 101 Follow-up/Referrals: Kaitlin Peguero MD [Physician] - (Please call the office on Tuesday to arrange a follow-up with ENT.) PCP,NO [Primary Care Provider] - Diet: Regular Addtl Attending Provider Instructions: You were admitted with an infection in the neck from an infected cyst. This cyst was likely there since you were born, but really just now started causing problems. Dr. Peguero feels the infection has been eliminated by the oral and IV antibiotics. Keep the Augmentin handy. If you see any redness, swelling, drainage, pus, or other concerning symptoms, please call Dr. Peguero's office immediately. Please call the office on Tuesday to arrange a follow-up with ENT. Dr. Peguero would like to see you in about 1 week to check on the surgical site and remove the stitches. Pending Studies at Discharge: No Stand-Alone Forms: My [facility], Smoking Cessation Medications and DC Order Prescriptions: Continued acetaminophen [Tylenol Extra Strength] 500 mg Tablet 1,000 mg PO Q6 PRN (Reason: Pain) RF: 0 ibuprofen 200 mg Tablet 400 - 600 mg PO Q6H PRN (Reason: Pain) RF: 0 fluticasone propionate [Flonase Allergy Relief] 50 mcg/actuation [place],Suspension 1 spray INTRANASAL DAILY RF: 0 loratadine [Claritin] 10 mg Tablet 10 mg PO DAILY RF: 0 guaifenesin [Mucinex] 600 mg Tablet Extended Release 12hr 600 mg PO Q12H PRN (Reason: Congestion) RF: 0 Discontinued amoxicillin-pot clavulanate [Augmentin] 875-125 mg tablet 1 tab PO BID Qty: 20 RF: 1 Discharge Orders: Discharge Order (Routine); Ordered 02/01/21 Ordered By: Alex Pereyra/Other Patient Handouts: DVT Post Op Prevention Admission Data Admit Date/Time: 01/29/21 14:54 Attending Provider: Alex Jon Admit Provider: Bulmaro Haji Primary Care Provider: PCP,NO Other Providers: Kaitlin Peguero How Other Interventions: Discharge Summary Assessment (RN) Last Done: 02/01/21 11:04 Coding Level of Care Code D/C Day Management >30 mins Diagnoses Branchial cleft cyst Q18.0 Chronic left maxillary sinusitis J32.0 Allergic rhinitis J30.9 DVT prophylaxis Z29.9
== END 2021-02-01 11:50 | disposition home or self-care (01) | DRG 145 ==
LOC: 3N 12:59 → ED 12:59 → SUATTDRO 14:16 → 3N 18:11
DX: J32.0 Chronic maxillary sinusitis; J30.9 Allergic rhinitis, unspecified; Q18.0 Sinus, fistula and cyst of branchial cleft